=== PATIENT | female | born 1965 | race African-American/Black ===

== ENCOUNTER 2017-10-05 14:08 | Emergency (ER) | payer MEDICAID ==
[~2017-10-05] VITALS: Ht 165.1 cm; Wt 72.6 kg
[~2017-10-05 14:08] MED LIST: CURCUMIN1 GM MC; DHEA TABLET1 EACH PO; FLAXSEED OIL1000 M2 PO; FLUCONAZOLE100 MG ORAL; HYDROCHLOROTHIA25 MG ORAL; LIPOIC ACID MC; MAGNESIUM200 M1 PO; METFORMIN HCL500 M1 ORAL; NKM; OMEGA 3 1,0001 EACH PO; PHENTERMINE HCL30 MG PO; SPIRULINA500 MG PO; VITAMIN B PO; VITAMIN D35000 UNIT PO; [UNRECOGNIZED DRUG - OTHER] MC; [UNRECOGNIZED DRUG - OTHER] PO
[2017-10-05 14:29] VITALS: BP 114/78
[2017-10-05] MEDS ORDERED: Ketorolac 30mg Inj IV ONE (15:00)
[2017-10-05 15:17] LABS: INR 0.9 (0.9-1.1)
[2017-10-05 15:23] LABS: BASOPHILS % (AUTO) 1.2 % (0.0-2.0); EOSINOPHILS % (AUTO) 1.8 % (0.0-3.0); HEMATOCRIT 40.7 % (37.0-47.0); HEMOGLOBIN 13.7 G/DL (12.0-16.0); LYMPHOCYTES % (AUTO) 41.3 % (20.0-45.0); MEAN CORPUSCULAR VOLUME 88 FL (80-99); MONOCYTES % (AUTO) 7.4 % (1.0-10.0); NEUTROPHILS % (AUTO) 48.3 % (45.0-75.0); PLATELET COUNT 195 K/UL (150-450); RED BLOOD COUNT 4.65 M/UL (4.20-5.40); RED CELL DISTRIBUTION WIDTH 11.9 % (11.6-14.8); WHITE BLOOD COUNT 5.6 K/UL (4.8-10.8)
--- NOTE | 2017-10-05 15:31 | Emergency Room Report ---
History of Present Illness General Chief Complaint: Chest Pain Source: Patient, Medical Record Present Illness HPI Patient presents with 2 months of left-sided chest pain. Was worse and woke her up last night at 2 AM. Last night she also felt numbness of her left arm and left leg. It was worse in her arm. She felt that she could move her arm. It's better at this morning. She didn't take any medication last night. Risk factors for cardiac disease: Hypertension. She denies diabetes smoking family history and doesn't know her cholesterol. She was quite frightened last night and felt palpitations at the same time. She decided to come in for evaluation today. She's not taking medication for her blood pressure but is taking herbs. She uses liquid cannabis to help her sleep. There's been no change in her medications recently. She denies indigestion, heartburn, back pain, muscle tightness. She still feels some tingling in her hand today. She is going through menopause and has fairly severe symptoms. She denies obvious stress at this time. When she has symptoms, she gets anxious. Allergies: Coded Allergies: No Known Allergies (Unverified , 07/08/13) Patient History Past Medical History: see triage record Social History: Reports: drug use - Liquid cannabis; Denies: smoking, alcohol use Social History Narrative catering administrative assistant Reviewed Nursing Documentation: PMH: Agreed; PSxH: Agreed Nursing Documentation-PMH Past Medical History: No History, Except For Hx Hypertension: Yes Review of Systems All Other Systems: negative except mentioned in HPI Physical Exam Vital Signs Date Time Temp Pulse Resp B/P (MAP) Pulse Ox O2 Delivery O2 Flow Rate FiO2 10/05/17 14:19 98.0 75 18 114/78 98 Room Air 98.1 Sp02 EP Interpretation: reviewed, normal General Appearance: well appearing, no apparent distress, GCS 15 Head: normocephalic Eyes: bilateral eye normal inspection, bilateral eye PERRL ENT: moist mucus membranes Neck: supple Respiratory: lungs clear, normal breath sounds Cardiovascular #1: regular rate, rhythm Cardiovascular #2: 2+ radial (R) Gastrointestinal: normal inspection, normal bowel sounds, non tender, no mass, non-distended Musculoskeletal: back normal, gait/station normal, normal range of motion Neurologic: alert, oriented x3, fuel cell builder III-XII nml as tested, motor strength/tone normal, DTRs symmetric, sensory deficit - subjective tingling L hand, light touch normal Psychiatric: anxious Skin: normal inspection, warm/dry Medical Decision Making Diagnostic Impression: Primary Impression: Chest pain Qualified Codes: R07.9 - Chest pain, unspecified Additional Impressions: Hypokalemia Paresthesias ER Course Patient presents with left-sided chest pain for 2 months worsened last night with left hand and leg numbness that is somewhat improved. Differential includes acute coronary syndrome, acute myocardial infarction, acute hyperventilation, costochondritis, GERD amongst others. The patient needs to be evaluated with EKG, chest x-ray and labs. The patient will be treated with Toradol and Pepcid. Based on her physical exam and history pulmonary embolus is extremely unlikely. EKG without injury. Chest x-ray normal. Labs significant for low potassium of 2.8. Troponins negative. Sed rate elevated. The patient started feeling some dizziness like the world was spinning. She also feels the heart pounding in her back and the tingling is still present. Her repeat neurologic exam at that time was normal with some anxiety. Improved with observation. Tolerated potassium. Discussed findings and treatment plan. Patient stable for outpatient observation and treatment. Laboratory Tests Test 10/05/17 14:46 10/05/17 16:03 White Blood Count 5.6 K/UL (4.8-10.8) Red Blood Count 4.65 M/UL (4.20-5.40) Hemoglobin 13.7 G/DL (12.0-16.0) Hematocrit 40.7 % (37.0-47.0) Mean Corpuscular Volume 88 FL (80-99) Mean Corpuscular Hemoglobin 29.6 PG (27.0-31.0) Mean Corpuscular Hemoglobin Concent 33.7 G/DL (32.0-36.0) Red Cell Distribution Width 11.9 % (11.6-14.8) Platelet Count 195 K/UL (150-450) Mean Platelet Volume 9.6 FL (6.5-10.1) Neutrophils (%) (Auto) 48.3 % (45.0-75.0) Lymphocytes (%) (Auto) 41.3 % (20.0-45.0) Monocytes (%) (Auto) 7.4 % (1.0-10.0) Eosinophils (%) (Auto) 1.8 % (0.0-3.0) Basophils (%) (Auto) 1.2 % (0.0-2.0) Erythrocyte Sedimentation Rate 42 MM/HR (0-20) H Prothrombin Time 9.4 SEC (9.30-11.50) Prothrombin Time INR 0.9 (0.9-1.1) PTT 28 SEC (23-33) Sodium Level 137 MMOL/L (136-145) Potassium Level 2.8 MMOL/L (3.5-5.1) L Chloride Level 98 MMOL/L (98-107) Carbon Dioxide Level 34 MMOL/L (21-32) H Anion Gap 6 mmol/L (5-15) Blood Urea Nitrogen 12 mg/dL (7-18) Creatinine 1.2 MG/DL (0.55-1.30) Estimate Glomerular Filtration Rate 57.7 mL/min (>60) Glucose Level 101 MG/DL (74-106) Calcium Level 10.2 MG/DL (8.5-10.1) H Total Bilirubin 0.4 MG/DL (0.2-1.0) Aspartate Amino Transferase (AST) 23 U/L (15-37) Alanine Aminotransferase (ALT) 39 U/L (12-78) Alkaline Phosphatase 77 U/L (46-116) Total Creatine Kinase 113 U/L (26-308) Troponin I 0.000 ng/mL (0.000-0.056) Total Protein 8.1 G/DL (6.4-8.2) Albumin 3.9 G/DL (3.4-5.0) Globulin 4.2 g/dL Albumin/Globulin Ratio 0.9 (1.0-2.7) L Thyroid Stimulating Hormone (TSH) 0.860 uiU/mL (0.358-3.740) Urine Color Pale yellow Urine Appearance Clear Urine pH 8 (4.5-8.0) Urine Specific [place] 1.015 (1.005-1.035) Urine Protein Negative (NEGATIVE) Urine Glucose (UA) Negative (NEGATIVE) Urine Ketones Negative (NEGATIVE) Urine Occult Blood Negative (NEGATIVE) Urine Nitrite Negative (NEGATIVE) Urine Bilirubin Negative (NEGATIVE) Urine Urobilinogen Normal MG/DL (0.0-1.0) Urine Leukocyte Esterase Negative (NEGATIVE) Urine HCG, Qualitative Negative (NEGATIVE) EKG Diagnostic Results Rate: normal Rhythm: NSR ST Segments: no acute changes Rhythm Strip Diag. Results EP Interpretation: yes Rhythm: NSR, no PVC's, no ectopy Chest X-Ray Diagnostic Results Chest X-Ray Diagnostic Results : Chest X-Ray Ordered: Yes # of Views/Limited/Complete: 1 View Indication: Chest Pain EP Interpretation: Yes Interpretation: no consolidation, no effusion, no pneumothorax Impression: No acute disease Electronically Signed by: Electronically signed by Abhijeet Espinosa MD Last Vital Signs Date Time Temp Pulse Resp B/P (MAP) Pulse Ox O2 Delivery O2 Flow Rate FiO2 10/05/17 17:40 84 18 125/74 100 Room Air 10/05/17 15:36 98.1 Status: improved Disposition: HOME, SELF-CARE Condition: Improved Scripts Potassium Chloride* (K-DUR*) 10 Meq Capsule.er 10 MEQ ORAL DAILY, #20 TAB 0 Refills One twice a day for one week. Then one once a day. Prov: Abhijeet Espinosa M.D. 10/05/17 Referrals: SAGAR JANG,REFERRING (PCP) Abhijeet Espinosa M.D. Oct 05, 2017 15:31
[2017-10-05 15:36] LABS: ALANINE AMINOTRANSFERASE 39 U/L (12-78); ALBUMIN 3.9 G/DL (3.4-5.0); ALBUMIN/GLOBULIN RATIO 0.9 (1.0-2.7); ALKALINE PHOSPHATASE 77 U/L (46-116); ANION GAP 6 mmol/L (5-15); ASPARTATE AMINO TRANSFERASE 23 U/L (15-37); BILIRUBIN,TOTAL 0.4 MG/DL (0.2-1.0); BLOOD UREA NITROGEN 12 mg/dL (7-18); CALCIUM 10.2 MG/DL (8.5-10.1); CARBON DIOXIDE 34 MMOL/L (21-32); CHLORIDE 98 MMOL/L (98-107); CREATINE KINASE 113 U/L (26-308); CREATININE 1.2 MG/DL (0.55-1.30); POTASSIUM 2.8 MMOL/L (3.5-5.1); SODIUM 137 MMOL/L (136-145)
[2017-10-05 16:21] LABS: APPEARANCE,URINE CLEAR; BILIRUBIN, URINE NEGATIVE (NEGATIVE); COLOR,URINE PALE YELLOW; GLUCOSE, URINE (UA) NEGATIVE (NEGATIVE); KETONES,URINE NEGATIVE (NEGATIVE); LEUKOCYTE ESTERASE ,URINE NEGATIVE (NEGATIVE); NITRITE,URINE NEGATIVE (NEGATIVE); PH,URINE 8 (4.5-8.0); PROTEIN,URINE NEGATIVE (NEGATIVE); UROBILINOGEN,URINE NORMAL MG/DL (0.0-1.0)
[2017-10-05 16:31] VITALS: BP 144/71
[2017-10-05] MEDS ORDERED: POTASSIUM CHLO10 MEQ ORAL (17:28)
[2017-10-05 17:40] VITALS: BP 125/74
--- NOTE | 2017-10-06 09:34 | Diagnostic Imaging Report ---
Indication: Weakness Technique: Continuous helical CT scanning of the head was performed utilizing automated exposure control without intravenous contrast material. Axial and coronal reconstructions were obtained. Comparison: None CT dose: Total DLP 1368.71 mGycm; CTDI vol 70.38 mGy Findings: There is no acute intracranial hemorrhage, midline shift, mass effect or cortical edema. The ventricles, cisterns and sulci are for age. Visualized mastoid air cells and paranasal sinuses are unremarkable. No focal lesions of the bony calvarium or soft tissues of the scalp are seen. IMPRESSION: No evidence of acute intracranial hemorrhage, mass effect or cortical edema. MRI may be obtained for more sensitive evaluation as clinically indicated. This corresponds with the statrad preliminary report.. The CT scanner at [facility] is accredited by the [employer] and the scans are performed using protocols designed to limit radiation exposure to as low as reasonably achievable to attain images of sufficient resolution adequate for diagnostic evaluation.
--- NOTE | 2017-10-06 10:09 | Diagnostic Imaging Report ---
Indication: Chest pain Technique: XRAY Chest 1v Comparison: Chest radiograph and CTA of the chest 07/09/2013 Findings: Heart size and mediastinal contours are within normal limits given technique. There is no focal consolidation, pneumothorax or pleural effusion. There is a calcified granuloma in the right lower lung. Mediastinal calcifications noted on prior CT not as well-seen on chest x-ray. Osseous structures demonstrate no acute abnormality. Impression: No radiographic evidence of acute cardiopulmonary disease.
--- NOTE | 2017-10-07 00:37 | Cardiology Report ---
APPROVED REPORT EKG Measurement Heart [id number] ND 204P-3 [id number] Normal sinus rhythm Normal ECG
== END 2017-10-05 17:45 | disposition home or self-care (01) ==
LOC: EMR 14:30
DX: R07.9 Chest pain, unspecified (principal); E87.6 Hypokalemia; R20.2 Paresthesia of skin; I10 Essential (primary) hypertension
CPT/HCPCS: 36415; 70450; 71045; 80053; 81003; 81025; 82550; 84443; 84484; 85025; 85610; 85651; 85730; 93005; 96374; 96375; 99284; J1885; S0028; J8499

== ENCOUNTER 2017-10-29 00:16 | Emergency (ER) | payer MEDICAID ==
[~2017-10-29] VITALS: Ht 170.2 cm; Wt 69.9 kg
[~2017-10-29 00:16] MED LIST changes: +POTASSIUM CHLO10 MEQ ORAL
[2017-10-29] MEDS ORDERED: Sodium Chloride 500ML 500 ML IV ONE (00:41)
[2017-10-29 00:51] LABS: APPEARANCE,URINE CLEAR; BILIRUBIN, URINE NEGATIVE (NEGATIVE); COLOR,URINE PALE YELLOW; GLUCOSE, URINE (UA) NEGATIVE (NEGATIVE); KETONES,URINE NEGATIVE (NEGATIVE); LEUKOCYTE ESTERASE ,URINE NEGATIVE (NEGATIVE); NITRITE,URINE NEGATIVE (NEGATIVE); PH,URINE 8 (4.5-8.0); PROTEIN,URINE NEGATIVE (NEGATIVE); UROBILINOGEN,URINE NORMAL MG/DL (0.0-1.0)
[2017-10-29 01:39] LABS: BASOPHILS % (AUTO) 0.9 % (0.0-2.0); EOSINOPHILS % (AUTO) 1.4 % (0.0-3.0); HEMATOCRIT 43.3 % (37.0-47.0); HEMOGLOBIN 15.3 G/DL (12.0-16.0); LYMPHOCYTES % (AUTO) 41.4 % (20.0-45.0); MEAN CORPUSCULAR VOLUME 89 FL (80-99); MONOCYTES % (AUTO) 7.2 % (1.0-10.0); NEUTROPHILS % (AUTO) 49.2 % (45.0-75.0); PLATELET COUNT 224 K/UL (150-450); RED BLOOD COUNT 4.88 M/UL (4.20-5.40); RED CELL DISTRIBUTION WIDTH 11.8 % (11.6-14.8); WHITE BLOOD COUNT 6.1 K/UL (4.8-10.8)
[2017-10-29] MEDS ORDERED: Isovue-370 150ml vial INJ PRN (01:45)
[2017-10-29] MEDS ORDERED: LORazepam Inj 2mg/ml 1ml IV ONE (01:45)
[2017-10-29 01:47] LABS: INR 0.9 (0.9-1.1)
[2017-10-29 01:49] LABS: ANION GAP 8 mmol/L (5-15); BLOOD UREA NITROGEN 11 mg/dL (7-18); CALCIUM 9.6 MG/DL (8.5-10.1); CARBON DIOXIDE 32 MMOL/L (21-32); CHLORIDE 100 MMOL/L (98-107); SODIUM 140 MMOL/L (136-145)
[2017-10-29 02:03] LABS: ALANINE AMINOTRANSFERASE 31 U/L (12-78); ALBUMIN 4.2 G/DL (3.4-5.0); ALKALINE PHOSPHATASE 76 U/L (46-116); ASPARTATE AMINO TRANSFERASE 24 U/L (15-37); BILIRUBIN,TOTAL 0.5 MG/DL (0.2-1.0); CKMB 1.2 NG/ML (0.0-3.6); CREATINE KINASE 273 U/L (26-308)
--- NOTE | 2017-10-29 02:08 | Diagnostic Imaging Report ---
EXAM: XR Chest, 1 View CLINICAL HISTORY: Chest pain TECHNIQUE: Frontal view of the chest. COMPARISON: October 05, 2017. FINDINGS: Lungs: Stable calcified granuloma in the right lower lobe. No consolidation. Pleural space: Unremarkable. No pneumothorax. Heart: Unremarkable. No cardiomegaly. Mediastinum: Unremarkable. Bones/joints: Unremarkable. IMPRESSION: No acute cardiopulmonary process.
[2017-10-29 02:12] VITALS: BP 105/62
--- NOTE | 2017-10-29 03:25 | Emergency Room Report ---
History of Present Illness General Chief Complaint: Chest Pain Source: Patient Present Illness HPI Patient is a 52-year-old female presented after increased chest discomfort. Patient reports having increased palpitations. She states that this had been recently increasing. She reported having the worsening pain and numbness to the left arm and left leg. She reported feeling of paresthesias to those areas. The patient was having a recent visit for similar symptoms. She denies being a smoker.The patient has prior history of hypertension as well as borderline diabetes. Allergies: Coded Allergies: No Known Allergies (Unverified , 07/08/13) Patient History Past Medical History: see triage record Last Menstrual Period: 2 weeks ago Now: No Reviewed Nursing Documentation: PMH: Agreed; PSxH: Agreed Nursing Documentation-PMH Hx Hypertension: Yes Review of Systems All Other Systems: negative except mentioned in HPI Physical Exam Vital Signs Date Time Temp Pulse Resp B/P (MAP) Pulse Ox O2 Delivery O2 Flow Rate FiO2 10/29/17 00:18 98.2 104 18 116/77 98 98.2 10/29/17 00:20 Room Air Sp02 EP Interpretation: reviewed, normal General Appearance: normal inspection, well appearing, no apparent distress, alert, GCS 15 Head: atraumatic ENT: normal ENT inspection, hearing grossly normal, normal voice Neck: normal inspection, full range of motion, supple, no bony tend Respiratory: normal inspection, lungs clear, normal breath sounds, no respiratory distress, no retraction, no wheezing Cardiovascular #1: regular rate, rhythm, no edema Gastrointestinal: normal inspection, normal bowel sounds, non tender, soft, no guarding, no hernia Genitourinary: no CVA tenderness Musculoskeletal: normal inspection, back normal, normal range of motion Neurologic: normal inspection, alert, oriented x3, responsive, manager e learning III-XII nml as tested, motor strength/tone normal, speech normal Psychiatric: normal inspection, judgement/insight normal, mood/affect normal Skin: normal inspection, normal color, no rash Medical Decision Making Diagnostic Impression: Primary Impression: chest pain, ACS Additional Impressions: Hypokalemia Thyroid nodule ER Course Patient presented for chest pain. Differential diagnosis included but was not limited to acute coronary syndrome, pulmonary embolism, pneumonia, aortic dissection, shingles, pneumothorax, aortic dissection, esophageal rupture, pericarditis. Because of complexity of patient's case laboratory testing and imaging studies were ordered.The laboratory testing was notable for negative troponin. EKG interpreted by me showed normal sinus rhythm with rate of [address] or T wave changes. The patient was given IV Ativan with some improvement in her symptoms as well as oral potassium. The patient was discussed with Dr. Collins who agreed to accept the patient as transfer.The CT of the chest was ordered Labs Test 10/29/17 00:25 10/29/17 01:20 Urine Color Pale yellow Urine Appearance Clear Urine pH 8 (4.5-8.0) Urine Specific [place] 1.010 (1.005-1.035) Urine Protein Negative (NEGATIVE) Urine Glucose (UA) Negative (NEGATIVE) Urine Ketones Negative (NEGATIVE) Urine Occult Blood Negative (NEGATIVE) Urine Nitrite Negative (NEGATIVE) Urine Bilirubin Negative (NEGATIVE) Urine Urobilinogen Normal MG/DL (0.0-1.0) Urine Leukocyte Esterase Negative (NEGATIVE) White Blood Count 6.1 K/UL (4.8-10.8) Red Blood Count 4.88 M/UL (4.20-5.40) Hemoglobin 15.3 G/DL (12.0-16.0) Hematocrit 43.3 % (37.0-47.0) Mean Corpuscular Volume 89 FL (80-99) Mean Corpuscular Hemoglobin 31.4 PG (27.0-31.0) Mean Corpuscular Hemoglobin Concent 35.3 G/DL (32.0-36.0) Red Cell Distribution Width 11.8 % (11.6-14.8) Platelet Count 224 K/UL (150-450) Mean Platelet Volume 8.9 FL (6.5-10.1) Neutrophils (%) (Auto) 49.2 % (45.0-75.0) Lymphocytes (%) (Auto) 41.4 % (20.0-45.0) Monocytes (%) (Auto) 7.2 % (1.0-10.0) Eosinophils (%) (Auto) 1.4 % (0.0-3.0) Basophils (%) (Auto) 0.9 % (0.0-2.0) Prothrombin Time 9.9 SEC (9.30-11.50) Prothromb Time International Ratio 0.9 (0.9-1.1) Activated Partial Thromboplast Time 28 SEC (23-33) D-Dimer 0.19 mg/L FEU (0.00-0.49) Sodium Level 140 MMOL/L (136-145) Potassium Level 3.0 MMOL/L (3.5-5.1) Chloride Level 100 MMOL/L (98-107) Carbon Dioxide Level 32 MMOL/L (21-32) Anion Gap 8 mmol/L (5-15) Blood Urea Nitrogen 11 mg/dL (7-18) Creatinine 1.0 MG/DL (0.55-1.30) Estimat Glomerular Filtration Rate > 60 mL/min (>60) Glucose Level 93 MG/DL (74-106) Calcium Level 9.6 MG/DL (8.5-10.1) Total Bilirubin 0.5 MG/DL (0.2-1.0) Aspartate Amino Transf (AST/SGOT) 24 U/L (15-37) Alanine Aminotransferase (ALT/SGPT) 31 U/L (12-78) Alkaline Phosphatase 76 U/L (46-116) Total Creatine Kinase 273 U/L (26-308) Creatine Kinase MB 1.2 NG/ML (0.0-3.6) Creatine Kinase MB Relative Index 0.4 Troponin I 0.000 ng/mL (0.000-0.056) C-Reactive Protein, Quantitative 0.5 mg/dL (0.00-0.90) Pro-B-Type Natriuretic Peptide 9 pg/mL (0-125) Total Protein 8.5 G/DL (6.4-8.2) Albumin 4.2 G/DL (3.4-5.0) Globulin 4.3 g/dL Albumin/Globulin Ratio 1.0 (1.0-2.7) Lipase 294 U/L (73-393) EKG Diagnostic Results Rate: normal Rhythm: NSR ST Segments: no acute changes ASA given to the pt in ED: Yes Rhythm Strip Diag. Results EP Interpretation: yes Rhythm: NSR, no PVC's, no ectopy Last Vital Signs Date Time Temp Pulse Resp B/P (MAP) Pulse Ox O2 Delivery O2 Flow Rate FiO2 10/29/17 02:12 97.0 91 12 105/62 100 Room Air 97.0 Status: improved Disposition: XFER SHT-TRM HOSP Condition: Stable Referrals: SAGAR JANG,REFERRING (PCP) Frantz Rodriguez MD Oct 29, 2017 03:24
[2017-10-29 04:06] VITALS: BP 103/64
[2017-10-29 04:08] VITALS: BP 103/64
--- NOTE | 2017-10-29 04:26 | Diagnostic Imaging Report ---
EXAM: CT Angiography Chest With Intravenous Contrast CLINICAL HISTORY: Chest pain TECHNIQUE: Axial computed tomographic angiography images of the chest with intravenous contrast using pulmonary embolism protocol. CTDI is 25 mGy and DLP is 700 mGy-cm. One or more of the following dose reduction techniques were used: automated exposure control, adjustment of the mA and/or kV according to patient size, use of iterative reconstruction technique. 3D reconstructed images were created and reviewed. Coronal and sagittal reformatted images were created and reviewed. COMPARISON: July 09, 2013. FINDINGS: Pulmonary arteries: Unremarkable. No pulmonary embolism. Aorta: No acute findings. No thoracic aortic aneurysm. Lungs: Calcified granuloma in the right lower lobe. No mass. No consolidation. Pleural space: Unremarkable. No significant effusion. No pneumothorax. Heart: Unremarkable. No cardiomegaly. No significant pericardial effusion. No evidence of RV dysfunction. Thyroid: Indeterminate hyperdense right thyroid lobe lesion, new. Stable left thyroid lobe low density lesion. Bones/joints: No acute fracture. No dislocation. Soft tissues: Unremarkable. Lymph nodes: Unremarkable. No enlarged lymph nodes. IMPRESSION: No evidence of PE. No focal consolidative process or pleural effusions. Indeterminate right thyroid lobe lesion, new since prior. Recommend correlation with nonemergent sonogram. Old granulomatous disease.
--- NOTE | 2017-10-30 14:47 | Cardiology Report ---
APPROVED REPORT EKG Measurement Heart [id number] [place] 170P-13 [id number] Normal sinus rhythm Normal ECG
== END 2017-10-29 04:17 | disposition home or self-care (01) ==
LOC: EMR 00:32
DX: I24.9 Acute ischemic heart disease, unspecified (principal); E87.6 Hypokalemia; E04.1 Nontoxic single thyroid nodule; I10 Essential (primary) hypertension
CPT/HCPCS: 36415; 71045; 71275; 80053; 81003; 82550; 82553; 83690; 83880; 84484; 85025; 85379; 85610; 85730; 86140; 93005; 96374; 99284; J7040; Q9967; J8499